=== PATIENT | male | born 1965 | race Hispanic/Latino ===

== ENCOUNTER 2023-03-30 12:55 | Outpatient (RCR) | payer MEDICAID, SELFPAY | END 2023-03-31 23:59 | disposition home or self-care (01) | LOC: CPTX 12:55 | PROVIDERS: PCP Internal Medicine; Referring Provider Orthopaedic Surgery; Visit Provider Orthopaedic Surgery | DX: Z53.9 Procedure and treatment not carried out, unspecified reason (principal) ==